=== PATIENT | female | born 1950 | race Two or more races ===

== ENCOUNTER 2018-09-11 11:28 | Emergency (ER) | payer MEDICARE, OTHER ==
[~2018-09-11] VITALS: Ht 149.9 cm; Wt 50.3 kg
[2018-09-11 11:50] VITALS: BP 153/78
== END 2018-09-11 13:24 | disposition home or self-care (01) ==
LOC: ER 11:31
DX: S52.531A Colles' fracture of right radius, initial encounter for closed fracture (principal); J44.9 Chronic obstructive pulmonary disease, unspecified; E78.5 Hyperlipidemia, unspecified; I10 Essential (primary) hypertension; F17.210 Nicotine dependence, cigarettes, uncomplicated; W01.0XXA Fall on same level from slipping, tripping and stumbling without subsequent striking against object, initial encounter; Y92.008 Other place in unspecified non-institutional (private) residence as the place of occurrence of the external cause; Y99.8 Other external cause status
CPT/HCPCS: 29125

== ENCOUNTER → 2018-09-28 | Day surgery (SDC) | payer MEDICARE, OTHER ==
[2018-09-27 16:18] LABS: Urine Blood 1+ /uL (Negative); Urine Specific Gravity 1.018 (1.001-1.035)
[2018-09-27 16:31] LABS: Albumin 3.5 g/dL (3.4-5.0); BUN/Creatinine Ratio 16.7; Basophils # (auto) 0 uL; Basophils % (auto) 0.5 % (0.0-2.0); Calcium 8.8 mg/dL (8.5-10.1); Eosinophils # (auto) 0.2 uL; Eosinophils % (auto) 2.4 % (0.0-7.0); Hematocrit 45.9 % (36.0-46.0); Hemoglobin 15.6 g/dL (12.2-16.2); Lymphocytes # (auto) 2.2 uL; Lymphocytes % (auto) 27.8 % (10.0-50.0); Mean Corpuscular Hemoglobin 33.9 pg (28.0-32.0); Mean Corpuscular Volume 99.5 fL (80.0-100.0); Monocytes # (auto) 0.8 uL; Monocytes % (auto) 9.5 % (0.0-12.0); Neutrophils # (auto) 4.7 uL; Neutrophils % (auto) 59.8 % (37.0-80.0); Nucleated Red Blood Cells % 0.1 %; Platelet Count (auto) 357 10^3/uL (140-450); Potassium 3.5 mmol/L (3.5-5.1); Red Blood Cells 4.61 10^6/uL (4.0-5.20); Red Cell Distribution Width 14.4 % (11.8-14.3); White Blood Cell 7.9 10^3/uL (4.4-10.8)
[2018-09-27 16:35] LABS: Bilirubin, Total 0.5 mg/dL (0.2-1.0); Total Protein 7.3 g/dL (6.4-8.2)
[2018-09-27 16:59] LABS: INR 1.01 (0.9-1.15); Partial Thromboplastin Time 26.8 sec (23.78-33.04); Prothrombin Time 10.8 sec (9.27-12.13)
[~2018-09-28] VITALS: Ht 149.9 cm; Wt 50.3 kg
[~2018-09-28] MED LIST: ALBU2TAB4 PO; ATOR10TA PO; BUPIVACAINE 0.25% INJ 50ML VIAL ONE; BUPIVACAINE HCL 0 ML ONE; BUPIVACAINE W/ EPINEPH 0.25% INJ 50ML MDV ONE; HYDROmorphone HCL 2 MG/ML VL IV PRN; HYDROmorphone HCL 2 MG/ML VL ONE; LIDOCAINE 1% HCL (LOCAL ANESTH.) INJ 20ML MDV ONE; LOSA-49 PO; ONDANSETRON HCL 4 MG/2 ML VIAL IV ONE; PROPOFOL 10 MG/ML 20 ML IV ONE; TIOTCAP IN; ceFAZolin 1GM/50ML 50 ML IV ONE; ePHEDrine SULFATE 50 MG/ML AMP IV PRN; fentaNYL CITRATE 100 MCG/2 ML VL IV ONE; fentaNYL CITRATE 100 MCG/2 ML VL ONE; hydrALAZINE HCL 20 MG/ML VL IV PRN
[2018-09-28] MEDS: fentaNYL CITRATE 100 MCG/2 ML VL IV PRN ×3 (13:14→13:35)
[2018-09-28 14:15] VITALS: BP 147/76
== END | disposition home or self-care (01) ==
LOC: SUR 09:11
PROVIDERS: ATTEND Orthopaedic Surgery
DX: S52.501A Unspecified fracture of the lower end of right radius, initial encounter for closed fracture (principal); X58.XXXA Exposure to other specified factors, initial encounter; Y93.89 Activity, other specified; Y92.89 Other specified places as the place of occurrence of the external cause; Y99.8 Other external cause status; I10 Essential (primary) hypertension; E78.00 Pure hypercholesterolemia, unspecified; J43.9 Emphysema, unspecified; F17.210 Nicotine dependence, cigarettes, uncomplicated; Z79.899 Other long term (current) drug therapy; Z98.891 History of uterine scar from previous surgery; K21.9 Gastro-esophageal reflux disease without esophagitis
CPT/HCPCS: 25607; 36415; 73100; 76000; 80053; 81003; 85025; 85610; 85730; J0690; J1170; J2001; J2704; J3010; J3490